=== PATIENT | female | born 1990 | race Caucasian/White ===

== ENCOUNTER 2021-03-15 08:30 | Inpatient (IN) | payer OTHER ==
[~2021-03-15] VITALS: Ht 154.9 cm; Wt 3.2 kg
[~2021-03-15 08:30] MED LIST: OBSTETRIX EC1 TAB.EC PO
== END 2021-03-25 14:22 | disposition home or self-care (01) | DRG 788 ==
LOC: OB/GYN 03-22 07:00 → O/R 03-22 07:48 → OB/GYN 03-22 08:30 → SURG-SUITE 03-22 11:58
PROVIDERS: ADMIT Obstetrics & Gynecology Maternal & Fetal Medicine; ATTEND Obstetrics & Gynecology Maternal & Fetal Medicine
PROC: 4A1HXFZ Monitoring of Products of Conception, Cardiac Rhythm, External Approach (ICD-10-PCS; 2021-03-22)
PROC: 10D00Z1 Extraction of Products of Conception, Low, Open Approach (ICD-10-PCS; principal; 2021-03-22 07:00)
DX: O34.211 Maternal care for low transverse scar from previous cesarean delivery (principal); Z37.0 Single live birth; Z3A.39 39 weeks gestation of pregnancy

== ENCOUNTER 2021-03-17 09:46 | Outpatient (CLI) | payer OTHER | END 2021-03-17 10:51 | disposition home or self-care (01) | LOC: NST 09:46 | PROVIDERS: ATTEND Obstetrics & Gynecology Maternal & Fetal Medicine | DX: Z34.83 Encounter for supervision of other normal pregnancy, third trimester (principal) ==